=== PATIENT | male | born 1995 | race Caucasian/White ===

== ENCOUNTER 2018-01-06 09:15 | Day surgery (SDC) | payer OTHER ==
[~2018-01-06] VITALS: Ht 165.1 cm; Wt 54.2 kg
[~2018-01-06 09:15] MED LIST: AZAT50; BUDESONIDE EC3 MG; DOCU100 PO; LORA.5; PROM25S; TRAM50 PO
[2018-01-06] MEDS ORDERED: TRAM50 (09:30)
[2018-01-06] MEDS ORDERED: PROM6.25SY (09:30)
== END 2018-01-06 10:59 | disposition home or self-care (01) ==
LOC: ORSCSDS 09:15
PROVIDERS: Internal Medicine Gastroenterology
PROC: 0DB68ZX Excision of Stomach, Via Natural or Artificial Opening Endoscopic, Diagnostic (ICD-10-PCS; principal; 2018-01-06 10:15)
PROC: 0DB88ZX Excision of Small Intestine, Via Natural or Artificial Opening Endoscopic, Diagnostic (ICD-10-PCS; principal; 2018-01-06 10:15)
DX: K92.0 Hematemesis (principal); K50.90 Crohn's disease, unspecified, without complications; Z87.891 Personal history of nicotine dependence
CPT/HCPCS: 88305; 88342; J2250

== ENCOUNTER 2018-08-20 08:38 | Emergency (ER) | payer OTHER ==
[~2018-08-20] VITALS: Ht 167.6 cm; Wt 59.0 kg
[~2018-08-20 08:38] MED LIST changes: +PROM6.25SY; +TRAM50
[2018-08-20] MEDS ORDERED: FLUO10 (08:45)
[2018-08-20 09:53] LABS: BASOPHILS ABSOLUTE AUTO 0.02 K/mm3 (0.00-0.23); BASOPHILS PERCENT AUTO 0 % (0-2); EOSINOPHILS ABSOLUTE AUTO 0.16 K/mm3 (0.00-0.68); EOSINOPHILS PERCENT AUTO 3 % (0-6); Hematocrit 43.7 % (37.0-53.0); Hemoglobin 14.4 g/dL (13.5-17.5); IMMATURE GRAN ABSOLUTE AUTO 0.01 K/mm3 (0.00-0.10); IMMATURE GRAN PERCENT AUTO 0 % (0-1); LYMPHOCYTES ABSOLUTE AUTO 1.71 K/mm3 (0.84-5.20); LYMPHOCYTES PERCENT AUTO 32 % (21-46); MONOCYTES ABSOLUTE AUTO 0.24 K/mm3 (0.16-1.47); MONOCYTES PERCENT AUTO 5 % (4-13); Mean Corpuscular HGB 31.8 pg (26.0-34.0); Mean Corpuscular Volume 97 fL (80-100); Mean Platelet Volume 9.7 fL (9.1-12.4); NEUTROPHILS ABSOLUTE AUTO 3.24 K/mm3 (1.96-9.15); NEUTROPHILS PERCENT AUTO 60 % (41-73); Platelet Count 134 K/mm3 (150-400); RDW Coefficient Variation 12.2 % (11.7-14.2); RDW Standard Deviation 43.6 fL (35.1-46.3); Red Blood Cell Count 4.53 M/mm3 (4.30-5.90); White Blood Cell Count 5.38 K/mm3 (4.00-11.30)
[2018-08-20 10:20] LABS: Alanine Aminotransfer (ALT/SGP 20 U/L (12-78); Albumin/Globulin Ratio 0.9 (0.8-1.8); Alk Phos 80 U/L (50-136); Anion Gap 11 mmol/L (6-16); Aspartate Aminotrans (AST/SGOT 15 U/L (12-37); Bilirubin, Total 0.9 mg/dL (0.1-1.0); Blood Urea Nitrogen 20 mg/dL (8-24); Bun/Creatinine Ratio 24.2 (12.0-20.0); CO2, Blood 25 mmol/L (21-32); Calcium, Blood 9.1 mg/dL (8.5-10.1); Chloride, Blood 103 mmol/L (98-108); Creatinine, Blood 0.83 mg/dL (0.60-1.20); Ethanol (Alcohol), Blood, Med <3 mg/dL; Globulin, Blood 4.3 g/dL (2.2-4.0); Glomerular Filtration Rate >60 (60-); Glucose, Blood 145 mg/dL (70-99); Potassium, Blood 3.6 mmol/L (3.5-5.5); Salicylate <1.7 mg/dL (2.8-20.0); Sodium, Blood 139 mmol/L (136-145); Total Protein, Blood 8.3 g/dL (6.4-8.2)
[2018-08-20 10:27] LABS: Acetaminophen, Random <2.0 ug/mL (10.0-30.0)
[2018-08-20] MEDS ORDERED: HYDHCL25 PO (12:54)
[2018-08-20] MEDS ORDERED: Ativan1 MG SL (12:54)
[2018-08-20] MEDS ORDERED: PROM25 PO (12:54)
== END 2018-08-20 13:11 | disposition home or self-care (01) ==
LOC: ER 08:38
PROVIDERS: Emergency Medicine
DX: F64.0 Transsexualism (principal); T43.225A Adverse effect of selective serotonin reuptake inhibitors, initial encounter; F41.9 Anxiety disorder, unspecified; F32.9 Major depressive disorder, single episode, unspecified; Z87.891 Personal history of nicotine dependence
CPT/HCPCS: 36415; 80053; 84443; 85025; 96360; 99284-25; G0480; J7120; Q3014

== ENCOUNTER 2019-07-06 11:59 | Day surgery (SDC) | payer OTHER ==
[~2019-07-06] VITALS: Ht 165.1 cm; Wt 52.7 kg
[~2019-07-06 11:59] MED LIST changes: +AZAT50 PO; +Ativan1 MG SL; +BUDESONIDE EC3 MG PO; +Colace100 MG PO; +FLUO10; +HYDHCL25 PO; +PROM25 PO; +TRAZ50 PO; +VITAMIN D32000 UNIT PO
== END 2019-07-06 14:07 | disposition home or self-care (01) ==
LOC: ORSCSDS 11:59
PROVIDERS: Internal Medicine Gastroenterology
PROC: 0DB98ZX Excision of Duodenum, Via Natural or Artificial Opening Endoscopic, Diagnostic (ICD-10-PCS; principal; 2019-07-06 13:00)
PROC: 0DB68ZX Excision of Stomach, Via Natural or Artificial Opening Endoscopic, Diagnostic (ICD-10-PCS; principal; 2019-07-06 13:00)
DX: R63.4 Abnormal weight loss (principal); K50.80 Crohn's disease of both small and large intestine without complications; K29.50 Unspecified chronic gastritis without bleeding; Z87.891 Personal history of nicotine dependence; R11.0 Nausea
CPT/HCPCS: 88305; 88342; J2250; J2704; J7120

== ENCOUNTER → 2023-02-27 | Outpatient (CLI) | payer OTHER ==
[~2023-02-27] MED LIST changes: +BUPR100ER PO; +GABA100 PO
[2023-02-27 17:10] LABS: BASOPHILS ABSOLUTE AUTO 0.03 K/mm3 (0.00-0.23); BASOPHILS PERCENT AUTO 0 % (0-2); EOSINOPHILS ABSOLUTE AUTO 0.11 K/mm3 (0.00-0.68); EOSINOPHILS PERCENT AUTO 2 % (0-6); Hematocrit 45.1 % (37.0-53.0); Hemoglobin 15.4 g/dL (13.5-17.5); IMMATURE GRAN ABSOLUTE AUTO 0.03 K/mm3 (0.00-0.10); IMMATURE GRAN PERCENT AUTO 0 % (0-1); LYMPHOCYTES ABSOLUTE AUTO 1.84 K/mm3 (0.84-5.20); LYMPHOCYTES PERCENT AUTO 24 % (21-46); MONOCYTES ABSOLUTE AUTO 0.56 K/mm3 (0.16-1.47); MONOCYTES PERCENT AUTO 7 % (4-13); Mean Corpuscular HGB 32.2 pg (26.0-34.0); Mean Corpuscular HGB Conc 34.1 g/dL (31.5-36.5); Mean Corpuscular Volume 94 fL (80-100); Mean Platelet Volume 9.1 fL (9.1-12.4); NEUTROPHILS ABSOLUTE AUTO 4.96 K/mm3 (1.96-9.15); NEUTROPHILS PERCENT AUTO 66 % (41-73); Platelet Count 265 K/mm3 (150-400); RDW Coefficient Variation 12.8 % (11.7-14.2); RDW Standard Deviation 44.2 fL (35.1-46.3); Red Blood Cell Count 4.79 M/mm3 (4.30-5.90); White Blood Cell Count 7.53 K/mm3 (4.00-11.30)
[2023-02-27 17:23] LABS: Albumin, Blood 3.9 g/dL (3.4-5.0); Albumin/Globulin Ratio 0.9 (0.8-1.8); Bilirubin, Total 0.5 mg/dL (0.1-1.0); Bun/Creatinine Ratio 19.8 (12.0-20.0); Creatinine, Blood 1.11 mg/dL (0.60-1.20); Globulin, Blood 4.3 g/dL (2.2-4.0); Potassium, Blood 3.6 mmol/L (3.5-5.5); Total Protein, Blood 8.2 g/dL (6.4-8.2)
== END | disposition home or self-care (01) ==
LOC: LAB SHORT 17:06 → LAB 17:06
PROVIDERS: Physician Assistant Medical
DX: R42 Dizziness and giddiness (principal)
CPT/HCPCS: 80053; 85025

== ENCOUNTER 2023-09-17 07:35 | Day surgery (SDC) | payer OTHER ==
[~2023-09-17] VITALS: Ht 170.2 cm; Wt 52.0 kg
[2023-09-17] MEDS ORDERED: TRAZ50 PO (08:00)
[2023-09-17] MEDS ORDERED: ONDA4 PO (08:21)
[2023-09-17 10:10] VITALS: BP 118/83
== END 2023-09-17 10:24 | disposition home or self-care (01) ==
LOC: ORSCSDS 07:35
DX: K50.90 Crohn's disease, unspecified, without complications (principal); K62.89 Other specified diseases of anus and rectum; K52.9 Noninfective gastroenteritis and colitis, unspecified; F41.9 Anxiety disorder, unspecified; Z79.899 Other long term (current) drug therapy
CPT/HCPCS: 88305; C1726; J2250; J2704; J7120

== ENCOUNTER 2024-04-24 04:03 | Day surgery (SDC) | payer OTHER ==
--- NOTE | 2024-04-20 08:34 | NUR ---
PATIENT CALLED AND RESCHEDULED TODAYS APPT
[~2024-04-24] VITALS: Wt 58.8 kg
[~2024-04-24 04:03] MED LIST changes: +Acetaminophen 325 MG TABLET PO SCH; +DiphenhydrAMINE HCL 25 MG Cap PO SCH; +Hydrocortisone Sod Succinate 100 MG Vial IV SCH; +Infliximab-DYYB 300 MG in NS 250 ML IV SCH; +ONDA4 PO
[2024-04-24] MEDS ORDERED: Infliximab-DYYB 300 MG in NS 250 ML IV SCH (06:00)
[2024-04-24] MEDS ORDERED: DiphenhydrAMINE HCL 25 MG Cap PO SCH ×2 (07:15)
[2024-04-24] MEDS ORDERED: Acetaminophen 325 MG TABLET PO SCH (07:15)
[2024-04-24] MEDS ORDERED: Hydrocortisone Sod Succinate 100 MG Vial IV SCH (07:15)
[2024-04-24 09:06] VITALS: BP 113/84
[2024-04-24] MEDS ORDERED: THERA-D2000 UNIT PO (09:49)
[2024-04-24] MEDS ORDERED: HYDPAM25 PO (09:50)
[2024-04-24] MEDS ORDERED: PROM25 PO (09:50)
[2024-04-24 09:56] VITALS: BP 110/76
[2024-04-24 10:09] VITALS: BP 97/68
[2024-04-24 10:23] VITALS: BP 103/66
[2024-04-24 10:38] VITALS: BP 107/79
[2024-04-24 11:49] VITALS: BP 104/70
== END 2024-04-24 11:49 | disposition home or self-care (01) ==
LOC: ATC 04:03
DX: K50.80 Crohn's disease of both small and large intestine without complications (principal); E55.9 Vitamin D deficiency, unspecified; Z87.891 Personal history of nicotine dependence; Z88.8 Allergy status to other drugs, medicaments and biological substances
CPT/HCPCS: 96375; 96413; 96415; A9270; J1720; J7050; Q5103

== ENCOUNTER 2024-05-15 02:30 | Day surgery (SDC) | payer OTHER ==
[~2024-05-15 02:30] MED LIST changes: -Acetaminophen 325 MG TABLET PO SCH; -DiphenhydrAMINE HCL 25 MG Cap PO SCH; +HYDPAM25 PO; -Hydrocortisone Sod Succinate 100 MG Vial IV SCH; -Infliximab-DYYB 300 MG in NS 250 ML IV SCH; +THERA-D2000 UNIT PO
[2024-05-15] MEDS ORDERED: Infliximab-DYYB 300 MG in NS 250 ML IV SCH (06:00)
[2024-05-15] MEDS ORDERED: Hydrocortisone Sod Succinate 100 MG Vial IV SCH (07:00)
[2024-05-15] MEDS ORDERED: Acetaminophen 325 MG TABLET PO SCH (07:00)
[2024-05-15] MEDS ORDERED: DiphenhydrAMINE HCL 25 MG Cap PO SCH (07:00)
[2024-05-15 14:18] VITALS: BP 95/65
[2024-05-15 15:09] VITALS: BP 100/61
[2024-05-15 15:25] VITALS: BP 99/65
[2024-05-15 15:41] VITALS: BP 89/73
[2024-05-15 15:58] VITALS: BP 105/78
[2024-05-15 16:30] VITALS: BP 98/66
== END 2024-05-15 17:04 | disposition home or self-care (01) ==
LOC: ATC 02:30
DX: K50.80 Crohn's disease of both small and large intestine without complications (principal); Z87.891 Personal history of nicotine dependence
CPT/HCPCS: 96375; 96413; 96415; A9270; J1720; J7050; Q5103

== ENCOUNTER → 2024-05-20 | Outpatient (CLI) | payer OTHER ==
[2024-05-20 13:57] LABS: BASOPHILS ABSOLUTE AUTO 0.02 K/mm3 (0.00-0.23); BASOPHILS PERCENT AUTO 0 % (0-2); EOSINOPHILS ABSOLUTE AUTO 0.11 K/mm3 (0.00-0.68); EOSINOPHILS PERCENT AUTO 2 % (0-6); Hematocrit 42.4 % (37.0-53.0); Hemoglobin 13.8 g/dL (13.5-17.5); IMMATURE GRAN ABSOLUTE AUTO 0.02 K/mm3 (0.00-0.10); IMMATURE GRAN PERCENT AUTO 0 % (0-1); LYMPHOCYTES ABSOLUTE AUTO 1.49 K/mm3 (0.84-5.20); LYMPHOCYTES PERCENT AUTO 27 % (21-46); MONOCYTES ABSOLUTE AUTO 0.39 K/mm3 (0.16-1.47); MONOCYTES PERCENT AUTO 7 % (4-13); Mean Corpuscular HGB 31.7 pg (26.0-34.0); Mean Corpuscular HGB Conc 32.5 g/dL (31.5-36.5); Mean Corpuscular Volume 97 fL (80-100); Mean Platelet Volume 9.3 fL (9.1-12.4); NEUTROPHILS PERCENT AUTO 64 % (41-73); Platelet Count 199 K/mm3 (150-400); RDW Coefficient Variation 12.9 % (11.7-14.2); RDW Standard Deviation 46.5 fL (35.1-46.3); Red Blood Cell Count 4.36 M/mm3 (4.30-5.90); White Blood Cell Count 5.63 K/mm3 (4.00-11.30)
[2024-05-20 14:01] LABS: Bun/Creatinine Ratio 19.1 (12.0-20.0); Calcium, Blood 8.8 mg/dL (8.5-10.1); Creatinine, Blood 0.89 mg/dL (0.60-1.20); Potassium, Blood 4.3 mmol/L (3.5-5.5)
[2024-05-20 16:22] LABS: Albumin, Blood 3.3 g/dL (3.4-5.0); Albumin/Globulin Ratio 0.9 (0.8-1.8); Bilirubin, Direct 0.1 mg/dL (0.0-0.3); Bilirubin, Indirect 0.2 mg/dL (0.1-0.7); Bilirubin, Total 0.3 mg/dL (0.1-1.0); Globulin, Blood 3.6 g/dL (2.2-4.0); Thyroid Stimulating Hormone 1.095 uIU/mL (0.360-4.800); Total Protein, Blood 6.9 g/dL (6.4-8.2)
[2024-05-24 09:28] LABS: CORTISOL, FREE BY ED/LC-MS/MS 0.07 ug/dL
== END ==
LOC: LAB 13:52 → LAB SHORT 13:52
PROVIDERS: Physician Assistant Medical
DX: I95.9 Hypotension, unspecified (principal); R53.83 Other fatigue; Z78.9 Other specified health status
CPT/HCPCS: 80048; 80076; 82530; 84443; 85025

== ENCOUNTER 2024-06-06 03:31 | Day surgery (SDC) | payer OTHER ==
[~2024-06-06] VITALS: Wt 59.1 kg
[2024-06-06] MEDS ORDERED: Infliximab-DYYB 300 MG in NS 250 ML IV SCH (06:00)
[2024-06-06] MEDS ORDERED: Hydrocortisone Sod Succinate 100 MG Vial IV SCH (07:10)
[2024-06-06] MEDS ORDERED: Acetaminophen 325 MG TABLET PO SCH (07:10)
[2024-06-06] MEDS ORDERED: DiphenhydrAMINE HCL 25 MG Cap PO SCH (07:10)
[2024-06-06 09:03] VITALS: BP 101/66
--- NOTE | 2024-06-06 09:12 | NUR ---
PT DECLINES PRE MEDS TODAY.
[2024-06-06 10:22] VITALS: BP 103/69
[2024-06-06 10:38] VITALS: BP 99/65
[2024-06-06 11:06] VITALS: BP 95/66
== END 2024-06-06 12:10 | disposition home or self-care (01) ==
LOC: ATC 03:31
DX: K50.80 Crohn's disease of both small and large intestine without complications (principal); Z87.891 Personal history of nicotine dependence; Z79.899 Other long term (current) drug therapy; Z88.8 Allergy status to other drugs, medicaments and biological substances
CPT/HCPCS: 96413; 96415; J7050; Q5103

== ENCOUNTER 2024-08-02 01:27 | Day surgery (SDC) | payer OTHER ==
[2024-08-02] MEDS ORDERED: Infliximab-DYYB 300 MG in NS 250 ML IV SCH (06:00)
[2024-08-02 14:02] VITALS: BP 117/74
== END 2024-08-02 16:48 | disposition home or self-care (01) ==
LOC: ATC 01:27
DX: K50.80 Crohn's disease of both small and large intestine without complications (principal); E55.9 Vitamin D deficiency, unspecified; Z79.899 Other long term (current) drug therapy; Z87.891 Personal history of nicotine dependence; Z88.8 Allergy status to other drugs, medicaments and biological substances
CPT/HCPCS: 96413; 96415; J7050; Q5103

== ENCOUNTER 2024-09-28 05:00 | Day surgery (SDC) | payer OTHER ==
[~2024-09-28] VITALS: Wt 60.7 kg
[2024-09-28] MEDS ORDERED: Infliximab-DYYB 300 MG in NS 250 ML IV SCH (06:00)
[2024-09-28] MEDS ORDERED: Hydrocortisone Sod Succinate 100 MG Vial IV SCH (07:00)
[2024-09-28] MEDS ORDERED: Acetaminophen 325 MG TABLET PO SCH (07:00)
[2024-09-28] MEDS ORDERED: DiphenhydrAMINE HCL 25 MG Cap PO SCH (07:00)
[2024-09-28 14:09] VITALS: BP 114/66
== END 2024-09-28 16:41 | disposition home or self-care (01) ==
LOC: ATC 05:00
DX: K50.80 Crohn's disease of both small and large intestine without complications (principal); Z79.899 Other long term (current) drug therapy
CPT/HCPCS: 96413; 96415; A9270; J7050; Q5103

== ENCOUNTER 2024-11-24 07:14 | Day surgery (SDC) | payer OTHER ==
[~2024-11-24] VITALS: Wt 59.2 kg
[~2024-11-24 07:14] MED LIST changes: +Acetaminophen 325 MG TABLET PO SCH; +DiphenhydrAMINE HCL 25 MG Cap PO SCH; +Hydrocortisone Sod Succinate 100 MG Vial IV SCH; +Infliximab-DYYB 300 MG in NS 250 ML IV SCH
[2024-11-24 14:13] VITALS: BP 101/74
--- NOTE | 2024-11-24 14:17 | NUR ---
Pt declines benedryl and solumedrol today.
== END 2024-11-24 16:45 | disposition home or self-care (01) ==
LOC: ATC 07:14
DX: K50.80 Crohn's disease of both small and large intestine without complications (principal); Z87.891 Personal history of nicotine dependence; Z79.899 Other long term (current) drug therapy; Z88.8 Allergy status to other drugs, medicaments and biological substances; Z86.0101 Personal history of adenomatous and serrated colon polyps
CPT/HCPCS: 96413; 96415; A9270; J7050; Q5103

== ENCOUNTER → 2024-12-15 | Outpatient (CLI) | payer OTHER ==
[~2024-12-15] MED LIST changes: -Acetaminophen 325 MG TABLET PO SCH; -DiphenhydrAMINE HCL 25 MG Cap PO SCH; -Hydrocortisone Sod Succinate 100 MG Vial IV SCH; -Infliximab-DYYB 300 MG in NS 250 ML IV SCH
[2024-12-19 15:48] LABS: CALPROTECTIN,FECAL 13 ug/g (<=49)
== END ==
LOC: LAB 14:02 → LAB SHORT 14:02 → LAB FUT 03-06 13:30
PROVIDERS: Internal Medicine Gastroenterology
DX: K50.80 Crohn's disease of both small and large intestine without complications (principal)
CPT/HCPCS: 83993

== ENCOUNTER 2025-01-19 04:39 | Day surgery (SDC) | payer OTHER ==
[~2025-01-19] VITALS: Wt 65.0 kg
[2025-01-19] MEDS ORDERED: Infliximab-DYYB 300 MG in NS 250 ML IV SCH (06:00)
[2025-01-19] MEDS ORDERED: Acetaminophen 325 MG TABLET PO SCH (07:00)
[2025-01-19] MEDS ORDERED: DiphenhydrAMINE HCL 25 MG Cap PO SCH (07:00)
[2025-01-19] MEDS ORDERED: Hydrocortisone Sod Succinate 100 MG Vial IV SCH (07:00)
[2025-01-19 14:05] VITALS: BP 112/75
[2025-01-19] MEDS ORDERED: CYCL10 PO (14:25)
== END 2025-01-19 16:45 | disposition home or self-care (01) ==
LOC: ATC 04:39
DX: K50.80 Crohn's disease of both small and large intestine without complications (principal); Z87.891 Personal history of nicotine dependence; Z79.899 Other long term (current) drug therapy; Z88.8 Allergy status to other drugs, medicaments and biological substances
CPT/HCPCS: 96413; 96415; A9270; J7050; Q5103

== ENCOUNTER 2025-05-11 03:29 | Day surgery (SDC) | payer OTHER ==
[~2025-05-11] VITALS: Wt 64.4 kg
[~2025-05-11 03:29] MED LIST changes: +CYCL10 PO
[2025-05-11] MEDS ORDERED: Infliximab-DYYB 300 MG in NS 250 ML IV SCH (06:00)
[2025-05-11] MEDS ORDERED: Acetaminophen 325 MG TABLET PO SCH (06:55)
[2025-05-11] MEDS ORDERED: DiphenhydrAMINE HCL 25 MG Cap PO SCH (06:55)
[2025-05-11] MEDS ORDERED: Hydrocortisone Sod Succinate 100 MG Vial IV SCH (06:55)
[2025-05-11 14:06] VITALS: BP 105/64
== END 2025-05-11 16:29 | disposition home or self-care (01) ==
LOC: ATC 03:29
DX: K50.80 Crohn's disease of both small and large intestine without complications (principal)
CPT/HCPCS: 96375; 96413; 96415; A9270; J1720; J7050; Q5103

== ENCOUNTER 2025-07-06 01:35 | Day surgery (SDC) | payer OTHER ==
[~2025-07-06] VITALS: Wt 63.8 kg
[2025-07-06 14:00] VITALS: BP 130/94
== END 2025-07-06 16:40 | disposition home or self-care (01) ==
LOC: ATC 01:35
DX: K50.80 Crohn's disease of both small and large intestine without complications (principal); Z86.0101 Personal history of adenomatous and serrated colon polyps; Z87.891 Personal history of nicotine dependence; Z79.899 Other long term (current) drug therapy
CPT/HCPCS: 96413; 96415; A9270; J7050; Q5103

== ENCOUNTER → 2025-08-10 | Outpatient (CLI) | payer OTHER ==
[2025-08-10 11:59] LABS: BASOPHILS ABSOLUTE AUTO 0.01 K/mm3 (0.00-0.23); BASOPHILS PERCENT AUTO 0 % (0-2); EOSINOPHILS ABSOLUTE AUTO 0.06 K/mm3 (0.00-0.68); EOSINOPHILS PERCENT AUTO 1 % (0-6); Hematocrit 44.5 % (37.0-53.0); Hemoglobin 15.0 g/dL (13.5-17.5); IMMATURE GRAN ABSOLUTE AUTO 0.00 K/mm3 (0.00-0.10); IMMATURE GRAN PERCENT AUTO 0 % (0-1); LYMPHOCYTES ABSOLUTE AUTO 1.59 K/mm3 (0.84-5.20); LYMPHOCYTES PERCENT AUTO 37 % (21-46); MONOCYTES ABSOLUTE AUTO 0.32 K/mm3 (0.16-1.47); MONOCYTES PERCENT AUTO 8 % (4-13); Mean Corpuscular HGB Conc 33.7 g/dL (31.5-36.5); Mean Corpuscular Volume 94 fL (80-100); NEUTROPHILS ABSOLUTE AUTO 2.31 K/mm3 (1.96-9.15); NEUTROPHILS PERCENT AUTO 54 % (41-73); NRBC ABSOLUTE 0.00 K/mm3 (0.00-0.02); NRBC Auto 0.0 /100 WBC (0.0-0.2); Platelet Count 203 K/mm3 (150-400); RDW Coefficient Variation 12.5 % (11.7-14.2); RDW Standard Deviation 43.2 fL (35.1-46.3)
[2025-08-10 12:10] LABS: Alanine Aminotransfer (ALT/SGP 25.0 U/L (12-78); Albumin, Blood 4.0 g/dL (3.4-5.0); Albumin/Globulin Ratio 1.0 (0.8-1.8); Anion Gap 10.0 mmol/L (3-11); Aspartate Aminotrans (AST/SGOT 16.0 U/L (12-37); Bilirubin, Total 0.6 mg/dL (0.1-1.0); Blood Urea Nitrogen 21.0 mg/dL (8-24); CO2, Blood 32.0 mmol/L (21-32); Calcium, Blood 9.1 mg/dL (8.5-10.1); Chloride, Blood 100.0 mmol/L (98-108); Creatinine, Blood 0.91 mg/dL (0.60-1.20); Globulin, Blood 3.9 g/dL (2.2-4.0); Glucose, Blood 103.0 mg/dL (70-99); Potassium, Blood 3.9 mmol/L (3.5-5.5); Sodium, Blood 138.0 mmol/L (136-145); Total Protein, Blood 7.9 g/dL (6.4-8.2)
== END ==
LOC: LAB SHORT 11:53 → LAB 11:53
PROVIDERS: Emergency Medicine
DX: R10.9 Unspecified abdominal pain (principal)
CPT/HCPCS: 80053; 83690; 85025; 85651; 86140

== ENCOUNTER 2025-08-31 08:17 | Day surgery (SDC) | payer OTHER ==
[~2025-08-31] VITALS: Wt 62.2 kg
[2025-08-31 14:02] VITALS: BP 108/75
== END 2025-08-31 16:55 | disposition home or self-care (01) ==
LOC: ATC 08:17
DX: K50.80 Crohn's disease of both small and large intestine without complications (principal); Z87.891 Personal history of nicotine dependence; Z79.899 Other long term (current) drug therapy
CPT/HCPCS: 96413; 96415; A9270; J7050; Q5103

== ENCOUNTER 2025-10-26 06:32 | Day surgery (SDC) | payer OTHER ==
[2025-10-26 14:15] VITALS: BP 113/79
== END 2025-10-26 17:09 | disposition home or self-care (01) ==
LOC: ATC 06:32
DX: K50.80 Crohn's disease of both small and large intestine without complications (principal); Z87.891 Personal history of nicotine dependence; Z79.899 Other long term (current) drug therapy; Z88.8 Allergy status to other drugs, medicaments and biological substances; Z86.0101 Personal history of adenomatous and serrated colon polyps
CPT/HCPCS: 96413; 96415; 99211; A9270; J7050; Q5103